=== PATIENT | female | born 1970 | race Caucasian/White ===

== ENCOUNTER 2017-04-12 11:49 | Emergency (ER) | payer OTHER ==
[~2017-04-12] VITALS: Wt 59.0 kg
[2017-04-12] MEDS ORDERED: LIDO30CR17 TP (12:36)
[2017-04-12] MEDS ORDERED: HYDR25SU23 PR (12:36)
[2017-04-12] MEDS ORDERED: HYDR-902 PO (12:36)
--- NOTE | 2017-04-12 12:38 | ERD ---
ER Documentation Chief Complaint Date/Time DATE: 04/12/17 TIME: 12:37 Chief Complaint ANAL PAIN X 2 MONTHS HPI This is a 39-year-old female with a known anal fissure who is here for pain control. Patient can get into her surgeon for another month. Sharp glasslike pain when she has bowel movement. Patient is taking laxatives to help with the pain during bowel movement but she says her doctor is not controlling her pain or giving her any other topical therapy. No rectal bleeding but occasionally has spots when she wipes. No abdominal pain. ROS All systems reviewed and are negative except as per history of present illness. Medications Home Meds Active Scripts Hydrocortisone Acetate (Anusol-Hc) 25 Mg Supp.rect, 25 MG NH BID Y for PAIN, # 30 SUPP.RECT Prov:MEERA FERNANDEZ DO 04/12/17 Lidocaine (RECTICARE) 30 Gm Cream..g., 30 GM TP prn , #30 Prov:MEERA FERNANDEZ DO 04/12/17 Hydrocodone/Acetaminophen ([place] 10-325 Tablet) 1 Each Tablet, 1 TAB PO Q6H Y for PAIN, #20 TAB Prov:MEERA FERNANDEZ DO 04/12/17 PMhx/Soc Medical and Surgical Hx: pt denies Surgical Hx Hx Miscellaneous Medical Probl: Yes (thyroid) Hx Alcohol Use: Yes (once q week) Hx Substance Use: Yes (marijuana daily) Hx Tobacco Use: No FmHx Family History: No coronary disease Physical Exam Vitals Vital Signs Date Time Temp Pulse Resp B/P Pulse Ox O2 Delivery O2 Flow Rate FiO2 04/12/17 11:55 98.0 71 18 129/71 99 Physical Exam Const: Well-developed, well-nourished Head: Atraumatic, normocephalic Eyes: Normal Conjunctiva, PERRLA, EOMI, normal sclera, no nystagmus ENT: Normal External Ears, Nose and Mouth, moist mucus membranes. Neck: Full range of motion. No meningismus, no lymphadenopathy. Resp: Clear to auscultation bilaterally, no wheezing, rhonchi, rales Cardio: Regular rate and rhythm, no murmurs, S1 S2 present Abd: Soft, non tender x 4, non distended. Normal bowel sounds, no guarding or rebound, no pulsitile abdominal masses or bruits Rectal: There is an anal tag at 6:00 with fissure at 6:00, no active bleeding Skin: No petechiae or rashes, no ecchymosis , no maculopapular rash Back: No midline or flank tenderness Ext: No cyanosis, or edema, FROM x 4, normal inspection, neurovascularly intact x 4 Neur: Awake and alert, STR 5/5 x 4, sensation intact x 4, no focal findings, cerebellum intact Psych: Normal Mood and Affect Procedures/MDM We will treat with topical lidocaine, steroid suppositories and pain control Departure Diagnosis: Primary Impression: Fissure in ano Condition: Stable Patient Instructions: Anal Fissure (Child) MEERA FERNANDEZ DO Apr 12, 2017 12:38
== END 2017-04-12 13:02 | disposition home or self-care (01) ==
LOC: FTE 11:49
DX: K60.2 Anal fissure, unspecified (principal)
CPT/HCPCS: 99283